=== PATIENT | male | born 1980 | race Caucasian/White ===

== ENCOUNTER 2017-01-15 15:50 | Outpatient (CLI) | payer BC ==
--- NOTE | 2017-01-16 07:46 | RAD ---
CERVICAL SPINE 01/15/17 AP, lateral, open mouth and swimmer's views were provided. No fracture, dislocation, or disc space narrowing was seen. No arthritic changes were evident. The C 1 to dens distance is normal and the soft tissues are normal in thickness. Small cervical ribs are s uggested. IMPRESSION: No significant bony findings. POS: HOME
== END 2017-01-15 15:51 | disposition home or self-care (01) ==
LOC: BURRAD 15:50
PROVIDERS: ATTEND Family Medicine
DX: M54.12 Radiculopathy, cervical region (principal)
CPT/HCPCS: 72040

== ENCOUNTER 2024-08-16 13:57 | Outpatient (CLI) | payer BC | END 2024-08-16 13:58 | disposition home or self-care (01) | LOC: BURRAD 13:57 | PROVIDERS: ATTEND Nurse Practitioner Family | DX: J45.31 Mild persistent asthma with (acute) exacerbation (principal) | CPT/HCPCS: 71046 ==